=== PATIENT | female | born 1975 | race Caucasian/White ===

== ENCOUNTER 2017-03-05 11:15 | Emergency (ER) | payer OTHER ==
[~2017-03-05] VITALS: Ht 162.6 cm; Wt 88.5 kg
[2017-03-05] MEDS ORDERED: TIZANIDINE HCL2 MG PO (11:32)
[2017-03-05] MEDS ORDERED: ACYCLOVIR400 MG PO (11:32)
[2017-03-05] MEDS ORDERED: CYCLOBENZAPRINE10 MG PO (11:33)
[2017-03-05] MEDS ORDERED: IBUPROFEN800 MG PO (11:33)
[2017-03-05] MEDS ORDERED: ZOLPIDEM TART12.5 MG PO (11:33)
[2017-03-05] MEDS ORDERED: PHENAZOPYRIDIN200 MG PO (11:33)
[2017-03-05] MEDS ORDERED: LUNESTA2 MG PO (11:40)
== END 2017-03-05 11:48 | disposition home or self-care (01) ==
LOC: ED 11:15
DX: G47.00 Insomnia, unspecified (principal)
CPT/HCPCS: 99283

== ENCOUNTER 2017-03-07 12:32 | Emergency (ER) | payer OTHER ==
[~2017-03-07] VITALS: Ht 162.6 cm; Wt 88.5 kg
[~2017-03-07 12:32] MED LIST: ACYCLOVIR400 MG PO; CYCLOBENZAPRINE10 MG PO; IBUPROFEN800 MG PO; LUNESTA2 MG PO; PHENAZOPYRIDIN200 MG PO; TIZANIDINE HCL2 MG PO; ZOLPIDEM TART12.5 MG PO
--- NOTE | 2017-03-07 19:17 | EKG ---
[facility] [address] [facility] [place] [address] Signed Normal sinus rhythm Normal ECG No previous ECGs available Confirmed by SHANNAN NIEVES MD ([id number] on 03/07/2017 7:17:43 PM Electronically Signed By: SHANNAN NIEVES MD 03/07/17 1917 PATIENT NAME: HECTOR RUSHING SASHA Electrocardiogram DATE OF : 73 PHYSICIAN: SHANNAN NIEVES MD REPORT #: [id number] REPORT IS CONFIDENTIAL AND NOT TO BE RELEASED WITHOUT AUTHORIZATION
== END 2017-03-07 14:12 | disposition home or self-care (01) ==
LOC: ED 12:32
DX: R07.9 Chest pain, unspecified (principal); Z87.440 Personal history of urinary (tract) infections; Z90.710 Acquired absence of both cervix and uterus; Z98.890 Other specified postprocedural states; Z79.899 Other long term (current) drug therapy
CPT/HCPCS: 71010; 80053; 81001; 84484; 85025; 93005; 93010; 96374; 99283; J2405